=== PATIENT | female | born 1990 ===

== ENCOUNTER 2024-08-24 11:08 | Emergency (ER) | payer BC, SELFPAY ==
[2024-08-24 11:19] VITALS: BP 155/79; PULSE 106; TEMP 36.4; O2SAT 100; BMI 20.4
--- NOTE | 2024-08-24 11:43 | CT_ITS ---
[address] [address] Patient Name: BJ COREA MRN: [id number] date: 1990 Sex: F Assigned Patient Location: ER Current Patient Location: Accession/Order Number: [id number] Exam Date: 08/24/2024 11:56 Report Date: 08/24/2024 12:23 At the request of: DEMOND KULKARNI Procedure: CT abdomen pelvis w con EXAMINATION: CT abdomen pelvis w con HISTORY: Rule out appendicitis COMPARISON: No relevant comparison available. TECHNIQUE: Axial, Coronal, and Sagittal images were obtained without and/or with IV contrast as indicated by examination type. Dose reduction techniques were achieved by using automated exposure control and/or adjustment of mA and/or kV according to patient size and/or use of iterative reconstruction technique. FINDINGS: LUNG BASES: No visible pulmonary or pleural disease. LIVER: No enlargement, atrophy, suspicious density, or significant focal lesion. BILIARY: No dilatation or calcification. PANCREAS: No lesion, fluid collection, or abnormal duct dilatation. SPLEEN: No enlargement or focal lesion. ADRENALS: No mass or enlargement. KIDNEYS: No mass, obstruction, or calcification. BOWEL/MESENTERY: No visible mass, obstruction, or bowel wall thickening. Normal appendix. AORTA/VASCULAR: No aneurysm or dissection. RETROPERITONEUM: No mass or adenopathy. LYMPH NODES: No adenopathy. URINARY BLADDER: No visible focal wall thickening, lesion, or calculus. PELVIC ORGANS: Trace amount of free fluid adjacent right ovary. 2.3 cm left ovarian cyst. No visible mass. Pelvic organs appropriate for patient age. ABDOMINAL WALL: No mass or hernia. BONES: No bony lesion or fracture. OTHER: Negative. CT/CT abdomen pelvis w con IMPRESSION: 1. Normal appendix and unremarkable bowel. No acute findings to account for patient's symptoms. 2. Trace amount of fluid adjacent the right ovary which may be secondary to a recently ruptured cyst. 3. Left ovary contains a 2.3 cm cyst. No surrounding inflammatory changes or suspicious findings. Electronically authenticated by: JAY TURPIN Date: 08/24/2024 12:23
--- NOTE | 2024-08-24 11:45 | ED.ABDPAIN1 ---
HPI - Abdominal Pain General Chief Complaint: Abdominal Pain Stated Complaint: RIGHT LOWER ABDOMINAL PAIN Time Seen by Provider: 08/24/24 11:43 Source: patient Mode of arrival: walk-in Limitations: no limitations History of Present Illness HPI narrative: Pain of abdominal pain. Started today and is gotten worse as the day went on. She has not taken any antibiotics or pain pills. She said the right ear was moderately uncomfortable. She says she is having more pain than when she has had ovarian cystic disease. She has had a partial hysterectomy but no other abdominal procedures. She is not having any diarrhea. She had a normal bowel movement this morning. She has not had anything to eat today. She does not have any chest pain or upper respiratory symptoms or other medical complaints today. She does have that she is to Bactrim. Related Data Allergies Allergy/AdvReac Type Severity Reaction Status Date / Time sulfamethoxazole (From Allergy Hives Verified 08/24/24 11:19 Bactrim) trimethoprim (From Bactrim) Allergy Hives Verified 08/24/24 11:19 PFSH PFSH Social History Little interest or pleasure in doing things: not at all Feeling down, depressed, or hopeless: not at all Exam Narrative Exam Narrative: Awake alert pleasant moves about slowly on the cart. She is afebrile. Skin integument are normal with no petechiae purpura rash or exanthem. Her conjunctiva is moist and pink. Abdomen shows mild increased bowel sounds. But she does have tenderness at McBurney's point. There is no peritoneal findings or rebound. The rest abdominal examination is normal with no enlargement of the spleen or liver to palpation. Constitutional Vital Signs, click to edit/add: Last Vital Signs Temp 97.6 F 08/24/24 11:19 Pulse 106 H 08/24/24 11:19 Resp 18 08/24/24 11:19 BP 155/79 H 08/24/24 11:19 Pulse Ox 100 08/24/24 11:19 O2 Del Method Room Air 08/24/24 11:19 Course Vital Signs Vital signs: Vital Signs Temperature 97.6 F 08/24/24 11:19 Pulse Rate 106 H 08/24/24 11:19 Respiratory Rate 18 08/24/24 11:19 Blood Pressure 155/79 H 08/24/24 11:19 Pulse Oximetry 100 08/24/24 11:19 Oxygen Delivery Method Room Air 08/24/24 11:19 Temperature 97.6 F 08/24/24 11:19 Pulse Rate 106 H 08/24/24 11:19 Respiratory Rate 18 08/24/24 11:19 Blood Pressure 155/79 H 08/24/24 11:19 Pulse Oximetry 100 08/24/24 11:19 Oxygen Delivery Method Room Air 08/24/24 11:19 MDM - Abdominal Pain MDM Narrative Medical decision making narrative: This patient CT findings shows a normal-appearing appendix and no other acute findings other small amount of fluid consistent with a ovarian cyst. This is also consistent with the patient's history and clinical exam that is rather benign. We will give her analgesics and she can follow-up with her [employer] as needed Lab Data Labs: Lab Results 08/24/24 08/24/24 Range/Units 11:50 11:51 WBC 8.6 (4.0-11.0) 10^3/uL RBC 4.32 (4.20-5.40) 10^6/uL Hgb 13.3 (12.0-16.0) g/dL Hct 39.1 (36.0-48.0) % MCV 90.5 (81.0-99.0) fL MCH 30.8 (26.7-34.0) pg MCHC 34.0 (29.9-35.2) g/dL RDW 11.4 (11.0-15.0) % Plt Count 222 (150-450) 10^3/uL MPV 11.5 (9.5-13.5) fL Neut % (Auto) 60.3 (43.0-75.0) % Lymph % (Auto) 30.8 (20.5-60.0) % [place] % (Auto) 6.0 (1.7-12.0) % Eos % (Auto) 2.0 (0.9-7.0) % Baso % (Auto) 0.5 (0.2-2.0) % Neut # (Auto) 5.2 (1.4-6.5) 10^3/uL Lymph # (Auto) 2.6 (1.2-3.8) 10^3/uL [place] # (Auto) 0.5 (0.3-0.8) 10^3/uL Eos # (Auto) 0.2 (0.0-0.7) 10^3/uL Baso # (Auto) 0.0 (0.0-0.1) 10^3/uL Abs Immat Gran (auto) 0.03 (0.00-0.03) 10^3/uL Imm/Tot Granulo (auto) 0.4 (0.0-0.5) % Sodium 141 (136-145) mmol/L Potassium 3.4 L (3.5-5.1) mmol/L Chloride 101 (98-107) mmol/L Carbon Dioxide 26.6 (21.0-32.0) mmol/L Anion Gap 16.8 BUN 10.0 (7.0-18.0) mg/dL Creatinine 0.92 (0.55-1.02) mg/dL Est GFR ( Amer) >60 (>=60 mL/min/1.73m^2) Est GFR (Non-Af Amer) >60 (>=60 mL/min/1.73m^2) BUN/Creatinine Ratio 10.9 Glucose 103 (74-106) mg/dL Lactate 2.0 (0.4-2.0) mmol/L Calcium 8.9 (8.5-10.1) mg/dL Total Bilirubin 1.0 (0.2-1.0) mg/dL AST 11 L (15-37) U/L ALT 11 L (14-59) U/L Alkaline Phosphatase 63 (46-116) U/L Total Protein 7.8 (6.4-8.2) g/dL Albumin 4.1 (3.4-5.0) g/dL Globulin 3.7 g/dL Albumin/Globulin Ratio 1.1 Urine Color Lt. yellow (YELLOW) Urine Clarity Clear (CLEAR) Urine pH 6.5 (5.0-9.0) Ur Specific [place] 1.020 (1.005-1.025) Urine Protein Negative (NEG/TRACE) mg/dL Urine Glucose (UA) Negative (NEGATIVE) mg/dL Urine Ketones 15 A (NEGATIVE) mg/dL Urine Occult Blood Small A (NEGATIVE) Urine Nitrite Negative (NEGATIVE) Urine Bilirubin Negative (NEGATIVE) Urine Urobilinogen 1.0 (0.2-1.0) EU/dL Ur Leukocyte Esterase Negative (NEGATIVE) Urine RBC 2-5 A (0-2) #/HPF Urine WBC None seen (NONE SEEN) #/HPF Ur Squamous Epith Cells Few A (NONE/RARE) #/LPF Urine Crystals None seen (None Seen) #/HPF Urine Bacteria Small A (NONE SEEN) #/HPF Urine Casts None seen (NONE SEEN) #/LPF Urine Mucus Small A (NONE SEEN) Ur Culture Indicated? Yes Discharge Plan Discharge Chief Complaint: Abdominal Pain Clinical Impression: Cystic disease of ovaries Patient Disposition: Home, Self-Care Time of Disposition Decision: 12:36 Print Language: [place]uran Additional Instructions: Use [id number] analgesics and supplement with [place] as needed. Return if symptoms worsen or you develop a high fever Referrals: Physician,Non-Staff, MD [Primary Care Provider] - 1 week
[2024-08-24 11:59] LABS: Basophils Percent Auto 0.5 % (0.2-2.0); Eosinophils Absolute Auto 0.2 10^3/uL (0.0-0.7); Hematocrit 39.1 % (36.0-48.0); Hemoglobin 13.3 g/dL (12.0-16.0); Immature Granulocytes Abs Auto 0.03 10^3/uL (0.00-0.03); Immature Granulocytes Pct Auto 0.4 % (0.0-0.5); Lymphocytes Absolute Auto 2.6 10^3/uL (1.2-3.8); Lymphocytes Percent Auto 30.8 % (20.5-60.0); Mean Corpuscular Hemoglobin 30.8 pg (26.7-34.0); Mean Corpuscular Volume 90.5 fL (81.0-99.0); Mean Platelet Volume 11.5 fL (9.5-13.5); Monocytes Absolute Auto 0.5 10^3/uL (0.3-0.8); Neutrophils Absolute Auto 5.2 10^3/uL (1.4-6.5); Neutrophils Percent Auto 60.3 % (43.0-75.0); Platelet Count 222 10^3/uL (150-450); Red Blood Count 4.32 10^6/uL (4.20-5.40); Red Cell Distribution Width 11.4 % (11.0-15.0); White Blood Count 8.6 10^3/uL (4.0-11.0)
[2024-08-24 12:00] LABS: Bilirubin Urine NEGATIVE (NEGATIVE); Blood Urine SMALL (NEGATIVE); Clarity Urine CLEAR (CLEAR); Color Urine LT. YELLOW (YELLOW); Glucose Urine UA NEGATIVE (NEGATIVE); Ketones Urine 15 mg/dL (NEGATIVE); Leukocyte Esterase Urine NEGATIVE (NEGATIVE); Nitrite Urine NEGATIVE (NEGATIVE); Protein Urine NEGATIVE (NEG/TRACE); pH Urine 6.5 (5.0-9.0)
[2024-08-24 12:02] LABS: Urine Microscopic Indicated YES
[2024-08-24 12:11] LABS: Mucus Urine SMALL (NONE SEEN); Squamous Epithelial Cell Urine FEW #/LPF (NONE/RARE); WBC Urine NONE SEEN #/HPF (NONE SEEN)
[2024-08-24 12:12] LABS: Bacteria Urine SMALL #/HPF (NONE SEEN); Cast Seen? NONE SEEN #/LPF (NONE SEEN); Crystals Seen? None Seen #/HPF (None Seen); Urine Culture Indicated YES
[2024-08-24 12:16] LABS: Alanine Aminotransferase 11 U/L (14-59); Albumin Globulin Ratio 1.1; Albumin Level 4.1 g/dL (3.4-5.0); Alkaline Phosphatase 63 U/L (46-116); Anion Gap 16.8; Aspartate Amino Transferase 11 U/L (15-37); BUN Creatinine Ratio 10.9; Calcium 8.9 mg/dL (8.5-10.1); Carbon Dioxide 26.6 mmol/L (21.0-32.0); Chloride 101 mmol/L (98-107); Estimated GFR (African America >60 (>=60 mL/min/1.73m^2); Estimated GFR (Non-African Ame >60 (>=60 mL/min/1.73m^2); Globulin 3.7 g/dL; Glucose 103 mg/dL (74-106); Potassium 3.4 mmol/L (3.5-5.1); Sodium 141 mmol/L (136-145); Total Protein 7.8 g/dL (6.4-8.2)
[2024-08-24 12:59] VITALS: BP 102/63; PULSE 79; O2SAT 98
== END 2024-08-24 13:01 | disposition home or self-care (01) ==
PROVIDERS: Emergency Provider Emergency Medicine Emergency Medical Services
DX: N83.202 Unspecified ovarian cyst, left side (principal)
CPT/HCPCS: 36415; 74177; 80053; 81001; 83605; 85025; 87086; 99285; Q9967